=== PATIENT | female | born 1995 | race Caucasian/White ===

== ENCOUNTER 2019-12-26 11:32 | Emergency (ER) | payer SELFPAY ==
--- NOTE | 2019-12-26 12:14 | ER Document Report ---
ED Medical Screen (RME) - General Chief Complaint: Abdominal Pain Stated Complaint: ABDOMINAL PAIN Time Seen by Provider: 12/26/19 12:04 Mode of Arrival: Ambulatory Information source: Patient Notes: 24-year-old female presents to ED for complaint of right upper quadrant abdominal pain x2 weeks. She states it was worse yesterday. She states she has had nausea vomiting and diarrhea. She states Rocaltrol, earlier than normal. She states she is not had any fevers. She states she does still have her gallbladder. She states she was in the hospital in [place] last week for a kidney infection and strep and is still on amoxicillin. She states last menstrual period started 4 days ago and she smokes 1 to 3 cigarettes a day. I have greeted and performed a rapid initial assessment of this patient. A comprehensive ED assessment and evaluation of the patient, analysis of test results and completion of medical decision making process will be conducted by an additional ED providers. - Related Data Allergies/Adverse Reactions: No Known Allergies Allergy (Verified 12/26/19 12:09) Past Medical History - Social History Frequency of alcohol use: None Drug Abuse: None Physical Exam - Vital signs Vitals: Temp Pulse Resp BP Pulse Ox 98.4 F 66 18 135/71 H 99 12/26/19 11:44 12/26/19 11:44 12/26/19 11:44 12/26/19 11:44 12/26/19 11:44 Course - Vital Signs Vital signs: Temp Pulse Resp BP Pulse Ox 98.4 F 66 18 135/71 H 99 12/26/19 11:44 12/26/19 11:44 12/26/19 11:44 12/26/19 11:44 12/26/19 11:44
--- NOTE | 2019-12-26 13:23 | RADIOLOGY REPORT (SQ) ---
EXAM DESCRIPTION: U/S ABDOMEN LIMITED W/O DOP IMAGES COMPLETED DATE/TIME: 12/26/2019 1:03 pm REASON FOR STUDY: ruq abdominal pain nvd COMPARISON: None. TECHNIQUE: Dynamic and static grayscale images acquired of the abdomen and recorded on PACS. Additio nal selected color Doppler and spectral images recorded. LIMITATIONS: Contracted gallbladder. FINDINGS: PANCREAS: No masses. Visualized pancreatic duct normal caliber. LIVER: No masses. Echotexture normal. LIVER VASCULATURE: Normal directional flow of the main portal vein and hepatic veins. GALLBLADDER: Contracted. No stones. Normal wall thickness. No pericholecystic fluid. ULTRASOUND-DETECTED WHALEY'S SIGN: Negative. INTRAHEPATIC DUCTS AND COMMON DUCT: CBD and intrahepatic ducts normal caliber. No filling defects. INFERIOR VENA CAVA: Normal flow. AORTA: No aneurysm identified. RIGHT KIDNEY: Normal size. Normal echogenicity. No solid or suspicious masses. No hydronephros is. No calcifications. PERITONEAL AND RIGHT PLEURAL SPACE: No ascites or effusions. OTHER: No other significant findings. IMPRESSION: NO ACUTE FINDINGS. Contracted gallbladder. TECHNICAL DOCUMENTATION: JOB ID: [id number] [place]-72 2010 [employer]- All Rights Reserved Reading location - IP/workstation name: [email or web address]
[2019-12-26 14:22] LABS: ABSOLUTE EOSINOPHILS # (AUTO) 0.1 10^3/uL (0.0-0.6); ABSOLUTE LYMPHOCYTES (AUTO) 2.3 10^3/uL (0.5-4.7); ABSOLUTE MONOCYTES (AUTO) 0.5 10^3/uL (0.1-1.4); ABSOLUTE NEUT (AUTO) 4.1 10^3/uL (1.7-8.2); BASOPHILS % (AUTO) 0.7 % (0-2); EOSINOPHILS % (AUTO) 1.6 % (0-6); HEMOGLOBIN 12.1 g/dL (12.0-15.5); LYMPHOCYTES % (AUTO) 32.4 % (13-45); MEAN CORPUSCULAR HEMOGLOBIN 28.7 pg (27.0-33.4); MEAN CORPUSCULAR HGB CONC 34.4 g/dL (32.0-36.0); MEAN CORPUSCULAR VOLUME 83 fl (80-97); PLATELET COUNT 187 10^3/uL (150-450); RED BLOOD COUNT 4.21 10^6/uL (3.72-5.28); RED CELL DISTRIBUTION WIDTH 13.6 % (11.5-14.0); SEGMENTED NEUTROPHILS % (AUTO) 58.3 % (42-78); TOTAL CELLS COUNTED % (AUTO) 100 %
[2019-12-26 14:24] LABS: APPEARANCE,URINE SLIGHTLY-CLOUDY; BILIRUBIN,URINE NEGATIVE (NEGATIVE); COLOR,URINE YELLOW; GLUCOSE, URINE NEGATIVE (NEGATIVE); KETONES,URINE NEGATIVE (NEGATIVE); LEUKOCYTE ESTERASE,URINE NEGATIVE (NEGATIVE); NITRITE,URINE NEGATIVE (NEGATIVE); PROTEIN,URINE NEGATIVE (NEGATIVE); URINE SPECIFIC GRAVITY 1.016; UROBILINOGEN,URINE NEGATIVE mg/dL (<2.0)
[2019-12-26 14:39] LABS: ALBUMIN 4.6 g/dL (3.5-5.0); ALKALINE PHOSPHATASE 80 U/L (38-126); ANION GAP 9 (5-19); ASPARTATE AMINO TRANSFERASE 22 U/L (14-36); BILIRUBIN,DIRECT 0.2 mg/dL (0.0-0.4); BILIRUBIN,TOTAL 0.3 mg/dL (0.2-1.3); BLOOD UREA NITROGEN 12 mg/dL (7-20); CALCIUM 9.5 mg/dL (8.4-10.2); CARBON DIOXIDE 25 mmol/L (22-30); CHLORIDE 106 mmol/L (98-107); GLUCOSE 118 mg/dL (75-110); TOTAL PROTEIN 7.8 g/dL (6.3-8.2)
--- NOTE | 2019-12-26 14:48 | ER Document Report ---
ED General - General Chief Complaint: Abdominal Pain Stated Complaint: ABDOMINAL PAIN Time Seen by Provider: 12/26/19 12:04 Primary Care Provider: TAMICA HERNANDEZ [Primary Care Provider] - Follow up as needed Mode of Arrival: Ambulatory Notes: Patient is a 24-year-old female who reports that she was recently [place] and was also being treated for strep throat with amoxicillin during her hospital stay who reports today to our emergency department the chief complaint of abdominal pain. She states she was having some strange pains in her left side and the pains eventually moved to the right side. She states this started in the right upper quadrant but have now localized to the right lower quadrant. She states the pain is associated with nausea and vomiting with any oral intake as well as some scant episodes of diarrhea. She denies any fever, chills or night sweats. States that she called and spoke with her doctor back home who was concerned for appendicitis and sent her for evaluation. The patient is still currently taking amoxicillin for strep throat. She was counseled that this may have something to do with GI upset. - Related Data Allergies/Adverse Reactions: No Known Allergies Allergy (Verified 12/26/19 12:09) Past Medical History - General Information source: Patient - Social History Smoking Status: Current Every Day Smoker Frequency of alcohol use: None Drug Abuse: None Family History: None Review of Systems - Review of Systems Constitutional: denies: Fever EENT: denies: Eye pain Cardiovascular: denies: Syncope Respiratory: denies: Cough Gastrointestinal: Abdominal pain Genitourinary: denies: Incontinence Female Genitourinary: denies: Vaginal discharge Musculoskeletal: denies: Deformity Skin: denies: Change in color Hematologic/Lymphatic: denies: Easy bleeding Neurological/Psychological: denies: Confusion Physical Exam - Vital signs Vitals: Temp Pulse Resp BP Pulse Ox 98.4 F 66 18 135/71 H 99 12/26/19 11:44 12/26/19 11:44 12/26/19 11:44 12/26/19 11:44 12/26/19 11:44 - General General appearance: Appears well, Alert In distress: None - HEENT Head: Normocephalic, Atraumatic Mucous membranes: Moist - Respiratory Respiratory status: No respiratory distress Chest status: Nontender Breath sounds: Normal Chest palpation: Normal - Cardiovascular Rhythm: Regular Heart sounds: Normal auscultation - Abdominal Inspection: Normal Distension: No distension Bowel sounds: Normal Tenderness: Tender - Right lower quadrant Organomegaly: No organomegaly - Back Back: No: CVA tenderness - Extremities General upper extremity: Normal inspection, Nontender, Normal color, Normal ROM, Normal temperature General lower extremity: Normal inspection, Nontender, Normal color, Normal ROM, Normal temperature, Normal weight bearing. No: Bebo's sign - Neurological Neuro grossly intact: Yes Cognition: Normal Orientation: AAOx4 - Psychological Associated symptoms: Normal affect, Normal mood - Skin Skin Temperature: Warm Skin Moisture: Dry Skin Color: Normal Course - Re-evaluation Re-evalutation: 12/26/19 18:33 Abdominal ultrasound showing contracted gallbladder otherwise no acute process per radiologist. CT scan showing splenomegaly which the patient reports was known at baseline for her. There is no other acute process to explain the patient's symptoms. Laboratory studies largely unremarkable and equivocal in the explanation of the patient's abdominal pain. She has been previously tested for endometriosis per her report and was told that was negative. Will refer her to gastroenterology for further evaluation and management. We will start her on Zofran for nausea and vomiting. Encouraged clear liquid diet for the next 24 hours and slow gradual return to bland diet. Advised importance of outpatient follow-up and recommended she return here or any ER immediately with any new, persistent or worsening symptoms. She verbalized understood and agreed. - Vital Signs Vital signs: Temp Pulse Resp BP Pulse Ox 97.9 F 57 L 16 116/68 100 12/26/19 17:08 12/26/19 17:08 12/26/19 17:08 12/26/19 17:08 12/26/19 17:08 - Laboratory Result Diagrams: 12/26/19 13:58 12/26/19 13:58 Laboratory results interpreted by me: 12/26/19 12/26/19 12/26/19 13:50 13:58 13:58 Hct 35.0 L Creatinine 0.46 L Glucose 118 H Urine Blood MODERATE H Discharge - Discharge Clinical Impression: Abdominal pain Qualifiers: Abdominal location: unspecified location Qualified Code(s): R10.9 - Unspecified abdominal pain Nausea & vomiting Qualifiers: Vomiting type: unspecified Vomiting Intractability: unspecified Qualified Code(s): R11.2 - Nausea with vomiting, unspecified Condition: Stable Disposition: HOME, SELF-CARE Instructions: Vomiting ([facility]), Abdominal Pain ([facility]) Additional Instructions: Please follow-up with the gastroenterology doctor as discussed and referred. Please return here or any ER immediately with any new, persistent or worsening symptoms. Prescriptions: Ondansetron [Zofran Odt 4 mg Tablet] 4 mg PO Q8 PRN #20 tab.rapdis PRN Reason: Referrals: LOCALMD,NO [Primary Care Provider] - Follow up as needed CORRINE KENNEDY MD [EMERITUS] - Follow up as needed
--- NOTE | 2019-12-26 18:02 | RADIOLOGY REPORT (SQ) ---
EXAM DESCRIPTION: CT ABD/PELVIS WITH IV ORAL IMAGES COMPLETED DATE/TIME: 12/26/2019 5:44 pm REASON FOR STUDY: RLQ pain COMPARISON: None. TECHNIQUE: CT scan of the abdomen and pelvis performed using helical scanning technique with dynamic intravenous contrast injection. Oral contrast. Images reviewed with lung, soft tissue, and bone win dows. Reconstructed coronal and sagittal MPR images reviewed. Delayed images for evaluation of the ur inary system also acquired. All images stored on PACS. All CT scanners at this facility use dose modulation, iterative reconstruction, and/or weight based d osing when appropriate to reduce radiation dose to as low as reasonably achievable (ALARA). [facility]: Dose Right [facility]: CareDose [facility]: Dose Right [facility]: Teradose 4D [facility]: JustBook CONTRAST TYPE AND DOSE: contrast/concentration: Isovue 350.00 mmol/ml; Total Contrast Delivered: 100 .0 ml; Total Saline Delivered: 58.0 ml RENAL FUNCTION: None required. The patient is less than 50 years old. RADIATION DOSE: CT Rad equipment meets quality standard of care and radiation dose reduction techniq ues were employed. CTDIvol: 8.3 - 11.8 mGy. DLP: 1112 mGy-cm.. LIMITATIONS: None. FINDINGS: LOWER CHEST: No significant findings. No nodules or infiltrates. LIVER: Normal size. No masses. No dilated ducts. SPLEEN: Splenomegaly. Splenic index is 855. PANCREAS: No masses. No significant calcifications. No adjacent inflammation or peripancreatic fluid collections. Pancreatic duct not dilated. GALLBLADDER: No identified stones by CT criteria. No inflammatory changes to suggest cholecystitis. ADRENAL GLANDS: No significant masses or asymmetry. RIGHT KIDNEY AND URETER: No solid masses. No significant calcifications. No hydronephrosis or hyd roureter. LEFT KIDNEY AND URETER: No solid masses. No significant calcifications. No hydronephrosis or hydr oureter. AORTA AND VESSELS: No aneurysm. No dissection. Renal arteries, SMA, celiac without stenosis. RETROPERITONEUM: No retroperitoneal adenopathy, hemorrhage or masses. BOWEL AND PERITONEAL CAVITY: No masses or inflammatory changes. No free fluid or peritoneal masses. APPENDIX: Normal. PELVIS: No mass. No free fluid. Normal bladder. ABDOMINAL WALL: No masses. No hernias. BONES: No significant or acute findings. OTHER: No other significant finding. IMPRESSION: Splenomegaly. No other significant finding. TECHNICAL DOCUMENTATION: JOB ID: [id number] Quality ID # [id number]: Final reports with documentation of one or more dose reduction techniques (e.g., Au tomated exposure control, adjustment of the mA and/or kV according to patient size, use of iterative reconstruction technique) 2010 [employer]- All Rights Reserved Reading location - IP/workstation name: [email or web address]
[2019-12-26 18:45] VITALS: BP 114/67
== END 2019-12-26 19:01 | disposition home or self-care (01) ==
LOC: ER 11:32
DX: K82.0 Obstruction of gallbladder (principal); R11.2 Nausea with vomiting, unspecified; R10.31 Right lower quadrant pain; R10.813 Right lower quadrant abdominal tenderness; R19.7 Diarrhea, unspecified; R16.1 Splenomegaly, not elsewhere classified; J02.0 Streptococcal pharyngitis; F17.200 Nicotine dependence, unspecified, uncomplicated; Z87.440 Personal history of urinary (tract) infections
CPT/HCPCS: 36415; 74177; 76705; 80053; 81001; 83690; 84703; 85025; 87086; 99285